=== PATIENT | male | born 1975 | race Caucasian/White ===

== ENCOUNTER 2023-08-30 08:33 | Outpatient (CLI) | payer OTHER, SELFPAY ==
--- NOTE | 2023-08-30 14:31 | ECG_ITS ---
Measurements Intervals [place] Rate: 86 P: 19 IA: 190 QRS: 57 QRSD: 126 T: 64 QT: 359 QTc: 431 Interpretive Statements SINUS RHYTHM POOR R-WAVE PROGRESSION BORDERLINE ECG ] NO PREVIOUS ECG AVAILABLE FOR COMPARISON Electronically Signed On 08-30-2023 18:06:16 GIZZARD PULLER by Enzo Cameron M.D.
[2023-08-30 14:54] LABS: Basophils Percent Auto 0.4 % (0.2-1.2); Eosinophils Absolute Auto 0.2 K/mm3 (0-0.3); Eosinophils Percent Auto 1.9 % (0-4.4); Hematocrit 46.4 % (42.0-52.0); Hemoglobin 15.3 g/dL (14.0-18.0); Immature Granulocyte Absolute 0.04 K/mm3 (0.00-0.031); Immature Granulocyte Percent A 0.4 % (0-0.5); Lymphocytes Absolute Auto 3.28 K/mm3 (0.9-3.2); Lymphocytes Percent Auto 36.4 % (18.3-44.2); Mean Corpuscular Hemoglobin 29.2 pg (26-34); Mean Corpuscular Volume 88.5 fl (80-100); Mean Platelet Volume 9.4 fl (7.4-10.4); Monocytes Absolute Auto 0.7 K/mm3 (0.1-0.6); Neutrophils Absolute Auto 4.8 K/mm3 (1.3-6.7); Neutrophils Percent Auto 52.9 % (45.5-73.1); Platelet Count Result 176 k/mm3 (150-375); Red Blood Count 5.24 M/mm3 (4.6-6.20); Red Cell Distribution Width 13.4 % (11.5-14.5)
[2023-08-30 15:08] LABS: Albumin Level 4.5 g/dL (3.5-5.1); Estimated Glomerular Filt Rate 46; Glucose 90 mg/dL (65-110)
[2023-08-30 15:40] LABS: Urine Cotinine NEGATIVE
[2023-08-30 18:18] LABS: Hemoglobin A1C 5.4 % (<5.7)
== END 2023-08-30 08:34 | disposition home or self-care (01) ==
PROVIDERS: Visit Provider Orthopaedic Surgery
DX: Z01.818 Encounter for other preprocedural examination (principal); M17.12 Unilateral primary osteoarthritis, left knee; R93.1 Abnormal findings on diagnostic imaging of heart and coronary circulation
CPT/HCPCS: 80307; 82040; 82565; 82947; 83036; 85025; 87081; 93005

== ENCOUNTER 2023-09-13 00:15 | Day surgery (SDC) | payer OTHER, MEDICAID, SELFPAY ==
[2023-08-30 13:50] VITALS: BMI 39.2
--- NOTE | 2023-08-30 14:06 | PC.NURSE ---
Report to the Outpatient Waiting Room, entrance under the green pavilion located off [facility], at time __0600 on date __09/13/23 . Planned Procedure Time: _0730 . Time changes happen often and if your time is changed the preop area will call you the afternoon before. - You and your visitor will be asked to self-screen and do not enter if you have any COVID symptoms. - A mask is optional within the hospital at this time. Patients may have clear liquids (water, carbonated beverages, clear teas, apple juice) until 3 hours prior to surgery( 4:30 AM) with a maximum of 20 ounces. - No food from midnight until time of surgery - Take the following medications with a SIP of water the morning of surgery: NONE DO NOT STOP ANY OF YOUR OTHER PRESCRIPTION MEDICATIONS PRIOR TO SURGERY ?EXCEPT THE FOLLOWING Medications to discontinue per physician NONE Date to take last dose Please no make-up, nail burundian, hairspray, perfume, deodorant, or body powder the day of surgery. No jewelry (including any body piercings) or valuables the day of surgery, leave them at home. Please take a shower or bath the night before, or the morning of, surgery with an antibacterial soap. Wear comfortable, loose fitting clothing. Children are encouraged to wear pajamas. - Jewelry must be removed prior to entering the operating room. Rings and piercings that are not removed may be cut off. - The hospital will not accept responsibility for valuables. - Please leave all valuables, including medications, at home the day of surgery. If you are going home after surgery, a licensed hazardous materials driver must drive you home. - NO public transportation without another adult if you receive anesthesia. - We recommend that an adult stay with you for 24 hours following discharge. - We also recommend that you do not drive, make important decision, drink alcoholic beverages, or take any drugs that were not prescribed by your health care provider for at least 24 hours after your discharge time. For Pediatric surgeries, we recommend two adults accompany the child home. Follow any additional instructions given to you from your surgeon. If you or anyone in your household have experienced Covid symptoms in the past week, please notify your surgeon or the nurse liaison at the phone number below for possible testing. VERBAL AND WRITTEN instructions given to PATIENT and asked if any additional questions and then verbalized understanding. Patient advised to call surgeon office or pre surgery nurse liaison [phone] if any additional questions.
[2023-08-30 14:22] VITALS: BP 138/87; PULSE 95; RESP 18; TEMP 36.8; O2SAT 98
--- NOTE | 2023-09-11 13:30 | PM.IMHP ---
H&P: HPI History of Present Illness Date/Time: 09/11/23 13:30 Chief Complaint: Patient presents knee pain left. He would like to have a knee replacement for his arthritis. Narrative: Patient has a long history of arthritis in his left knee. He has failed conservative treatment including medicine therapy cortisone exercise and time. He has also had arthroscopy previously of the left knee. He has to the point where he like to consider knee replacement surgery. Review of Systems Musculoskeletal: Musculoskeletal: Reports arthralgias and Reports joint swelling [facility] Surgical History Surgical History (Updated 08/13/23 @ 10:13 by Love Tyler [facility]) History of arthroscopic knee surgery left - Dr Fowler History of back surgery History of breast biopsy History of carpal tunnel release of both wrists History of ear surgery History of hernia repair History of shoulder surgery left- Dr Fowler Family History Family History (Updated 05/05/11 @ 12:27 by DOCTOR UNKNOWN) Other Diabetes mellitus Family history of cardiovascular disease Family history of kidney disease Social History Social History (Updated 08/13/23 @ 10:13 by Love Tyler [facility]) Smoking status: Never smoker Additional smoking assessment comments: DENIES ANY FORM OF TOBACCO USE Alcohol intake: current Drinks per week: 12 Alcohol use details: occasional Substance use type: does not use Lack of Transportation: No Lack of Food: Never True Current Housing: I Have Housing Concerned About Future Housing: No Difficulty Paying Gas/Electric Bills: No Difficulty Paying for Meds: No Currently Unemployed: No Education: High School Diploma/GED Difficulty w/ Childcare or Family Care: No Living arrangements: with family Occupation/Education: occupation 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 Motion from about 3 to 110?. Varus deformity. He walks with an antalgic gait. Has grinding crepitus and pain with any manipulation. Neurologically he can wiggle his toes and is grossly intact. Eyes: General: appearance normal, both eyes and all related structures Neck: Neck: supple Resp: Effort & Inspection: normal respiratory effort Cardio: Rate: regular rate Rhythm: regular rhythm Assessment and Plan Assessment and plan (1) Osteoarthritis of left knee: Code(s): M17.12 - Unilateral primary osteoarthritis, left knee Status: Acute Assessment and Plan: Patient has [id number] arthritis left knee. He has failed conservative treatment consisting of medicine therapy cortisone exercise and time. He is obese is however his BMI is under 40 at this point. He has even had knee arthroscopy this left knee and at this point nothing seems to help. He walks with an antalgic gait. Will proceed with knee replacement surgery per his request discussed risks benefits limitations and alternatives in detail. He understands the risks of surgery.
[2023-09-13] MEDS: ACETAMINOPHEN 500 MG TABLET 1000 MG PO (06:08)
[2023-09-13] MEDS: VANCOMYCIN 2,000 MG/NS 500 ML BAG 250 MG IVPB (06:25)
[2023-09-13] MEDS: LACTATED RINGERS 1,000 ML 30 ML IV CONT (06:35)
[2023-09-13 06:51] VITALS: BP 153/94; PULSE 85; RESP 16; TEMP 36.4; O2SAT 98
--- NOTE | 2023-09-13 06:52 | WPDANESEPPF ---
Anes - Initial Pre Proc Eval Procedure: Operation Date: 09/13/23 07:30 Proposed Procedures p Left Total Knee Arthroplasty - Poli Fowler MD Date/Time: 09/13/23 06:52 Surgeon: Poli Fowler MD Pre Op Diagnosis: OA left knee Patient Data Age: 48 Gender: M Height: 1.75 m Weight: 120.4 kg Last Vital Signs Temp 36.8 C 08/30/23 14:22 Pulse 95 08/30/23 14:22 Resp 18 08/30/23 14:22 BP 138/87 08/30/23 14:22 Pulse Ox 98 08/30/23 14:22 O2 Del Method Room Air 08/30/23 14:22 Allergies Allergy/AdvReac Type Severity Reaction Status Date / Time diclofenac AdvReac Unknown drowsy, Verified 09/13/23 06:05 nausea Home Medications Medication Instructions Recorded Confirmed Type rivaroxaban 10 mg tablet (Xarelto) 10 mg PO DAILY PE prophylaxis s/p 09/11/23 Rx joint replacement surgery #14 tabs Patient hx anesthesia problems: none Family hx anesthesia problems: none Results Review: All pre-operative results and documents have been reviewed as part of the pre-operative evaluation. FORMERLY [facility] Past Medical History Medical History (Updated 09/13/23 @ 06:52 by Piter Sigala MD) Obesity SOLITARIO (obstructive sleep apnea) Surgical History Surgical History History of arthroscopic knee surgery left - Dr Fowler History of back surgery History of breast biopsy History of carpal tunnel release of both wrists History of ear surgery History of hernia repair History of shoulder surgery left- Dr Fowler Family History Family History Other Diabetes mellitus Family history of cardiovascular disease Family history of kidney disease Social History Social History Smoking status: Never smoker Additional smoking assessment comments: DENIES ANY FORM OF TOBACCO USE Alcohol intake: current Drinks per week: 12 Alcohol use details: occasional Substance use type: does not use Lack of Transportation: No Lack of Food: Never True Current Housing: I Have Housing Concerned About Future Housing: No Difficulty Paying Gas/Electric Bills: No Difficulty Paying for Meds: No Currently Unemployed: No Education: High School Diploma/GED Difficulty w/ Childcare or Family Care: No Living arrangements: with family Occupation/Education: occupation 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 Informed Consent: The patient's anesthetic plan and its attendant risks and benefits were discussed with the patient/family/POA. Questions were solicited and answers provided to the satisfaction of the patient/family/POA.
--- NOTE | 2023-09-13 06:55 | WPDHPUPDATE1 ---
History and Physical Update Update Date/Time: 09/13/23 06:55 History and Physical has been reviewed, including an updated exam of the patient. There are NO changes in the patient's condition. Risks, benefits, and alternatives have been discussed and questions answered. Patient agrees to proceed with procedure. Patient has pimples on both legs. Will try to clean these up before surgery, and reschedule.
--- NOTE | 2023-09-13 07:04 | SUR.PREOP ---
Dr Fowler cancelled surgery due to pimples on his knee.
== END 2023-09-13 07:15 | disposition home or self-care (01) ==
PROVIDERS: Visit Provider Orthopaedic Surgery
PROC: (CPT 27447; principal; 2023-09-13 07:30)
DX: M17.12 Unilateral primary osteoarthritis, left knee (principal); G47.33 Obstructive sleep apnea (adult) (pediatric); E66.9 Obesity, unspecified; Z68.38 Body mass index [BMI] 38.0-38.9, adult; Z98.890 Other specified postprocedural states; Z79.01 Long term (current) use of anticoagulants; Z82.49 Family history of ischemic heart disease and other diseases of the circulatory system; Z53.09 Procedure and treatment not carried out because of other contraindication; L98.9 Disorder of the skin and subcutaneous tissue, unspecified
CPT/HCPCS: 36415; 86850; 86900; 86901; 99213; A9270; G0463; J0171; J1885; J2250; J2270; J2795; J3010; J3370; J7120

== ENCOUNTER 2023-09-27 00:34 | Day surgery (SDC) | payer OTHER, SELFPAY ==
[2023-09-20 09:41] VITALS: BMI 39.2
--- NOTE | 2023-09-20 09:48 | PC.NURSE ---
Report to the Outpatient Waiting Room, entrance under the green pavilion located off [facility], at time ___08____ on date _09/27/23 . Planned Procedure Time: ___1030 . Time changes happen often and if your time is changed the preop area will call you the afternoon before. - You and your visitor will be asked to self-screen and do not enter if you have any COVID symptoms. - A mask is optional within the hospital at this time. Patients may have clear liquids (water, carbonated beverages, clear teas, apple juice) until 3 hours prior to surgery (0730 AM) with a maximum of 20 ounces. - No food from midnight until time of surgery - Infants may have breast milk until 4 hours before surgery, formula 6 hours prior to surgery. - Children will be allowed to drink immediately following surgery. If applicable, please bring a bottle or sippy cup to assist with drinking. Juice, water, soda, and popsicles are readily available. For infants on formula, please bring formula the day of surgery. Pacifiers are allowed. Take the following medications with a SIP of water the morning of surgery: ____NONE DO NOT STOP ANY OF YOUR OTHER PRESCRIPTION MEDICATIONS PRIOR TO SURGERY ?EXCEPT THE FOLLOWING Medications to discontinue per physician NONE Date to take last dose Please no make-up, nail syriac, hairspray, perfume, deodorant, or body powder the day of surgery. No jewelry (including any body piercings) or valuables the day of surgery, leave them at home. Please take a shower or bath the night before, or the morning of, surgery with an antibacterial soap. Wear comfortable, loose fitting clothing. Children are encouraged to wear pajamas. - Jewelry must be removed prior to entering the operating room. Rings and piercings that are not removed may be cut off. - The hospital will not accept responsibility for valuables. - Please leave all valuables, including medications, at home the day of surgery. If you are going home after surgery, a licensed cdl a driver must drive you home. - NO public transportation without another adult if you receive anesthesia. - We recommend that an adult stay with you for 24 hours following discharge. - We also recommend that you do not drive, make important decision, drink alcoholic beverages, or take any drugs that were not prescribed by your health care provider for at least 24 hours after your discharge time. For Pediatric surgeries, we recommend two adults accompany the child home. Follow any additional instructions given to you from your surgeon. If you or anyone in your household have experienced Covid symptoms in the past week, please notify your surgeon or the nurse liaison at the phone number below for possible testing. Telephone instructions given to ____PT and asked if any additional questions and then verbalized understanding. Patient advised to call surgeon office or pre surgery nurse liaison [phone] if any additional questions.
--- NOTE | 2023-09-26 12:42 | PM.IMHP ---
H&P: HPI History of Present Illness Date/Time: 09/26/23 12:42 Chief Complaint: Osteoarthritis left knee. Narrative: Patient has a long history of pain in the left knee. He has failed conservative treatment like to consider knee replacement surgery at this point. Review of Systems Musculoskeletal: Musculoskeletal: Reports arthralgias and Reports joint swelling PMF Past Medical History Medical History (Updated 09/13/23 @ 06:52 by Piter Sigala MD) Obesity SOLITARIO (obstructive sleep apnea) Surgical History Surgical History History of arthroscopic knee surgery left - Dr Fowler History of back surgery History of breast biopsy History of carpal tunnel release of both wrists History of ear surgery History of hernia repair History of shoulder surgery left- Dr Fowler Family History Family History Other Diabetes mellitus Family history of cardiovascular disease Family history of kidney disease Social History Social History Smoking status: Never smoker Second hand tobacco smoke exposure: No Additional smoking assessment comments: PT DENIES ALL FORMS TOBACCO USE Alcohol intake: current Drinks per week: 12 Alcohol use details: occasional Substance use: never Substance use type: does not use Lack of Transportation: No Lack of Food: Never True Current Housing: I Have Housing Concerned About Future Housing: No Difficulty Paying Gas/Electric Bills: No Difficulty Paying for Meds: No Currently Unemployed: No Education: High School Diploma/GED Difficulty w/ Childcare or Family Care: No Living arrangements: with family Occupation/Education: occupation 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 He has varus deformity. He walks with an antalgic gait. Neurologically he is grossly intact. Eyes: General: appearance normal, both eyes and all related structures Neck: Neck: supple Resp: Effort & Inspection: normal respiratory effort Cardio: Rate: regular rate Rhythm: regular rhythm Assessment and Plan Assessment and plan (1) Osteoarthritis of left knee: Code(s): M17.12 - Unilateral primary osteoarthritis, left knee Status: Acute Assessment and Plan: Patient has osteoarthritis of his left knee. He has failed conservative treatment including medicine therapy cortisone exercise time. He would like to consider knee replacement surgery. I have discussed this with him risks benefits limitations and alternatives in detail. Will proceed per his request. I canceled 2 weeks ago because of folliculitis. Will reassess his skin at the time of surgery to make sure it is okay to proceed. I have discussed these things in detail with him. Of note is the fact he is young heavy active in [place] all of which leads to early loosening and he is aware of this.
--- NOTE | 2023-09-26 13:16 | WPDANESEPPF ---
Anes - Initial Pre Proc Eval Procedure: Operation Date: 09/27/23 10:30 Proposed Procedures p Left Total Knee Arthroplasty - Poli Fowler MD Date/Time: 09/26/23 13:16 Surgeon: Poli Fowler MD Pre Op Diagnosis: OA Left Knee Patient Data Age: 48 Gender: M Height: 1.75 m Weight: 120.4 kg Allergies Allergy/AdvReac Type Severity Reaction Status Date / Time diclofenac AdvReac Unknown drowsy, Verified 09/20/23 09:40 nausea Home Medications Medication Instructions Recorded Confirmed Type doxycycline hyclate 100 mg capsule 100 mg PO Q12H 10 days #20 caps 09/13/23 09/20/23 Rx Patient hx anesthesia problems: none Family hx anesthesia problems: none Results Review: All pre-operative results and documents have been reviewed as part of the pre-operative evaluation. 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 Obesity SOLITARIO (obstructive sleep apnea) non compliant with CPAP Surgical History Surgical History History of arthroscopic knee surgery left - Dr Fowler History of back surgery History of breast biopsy History of carpal tunnel release of both wrists History of ear surgery History of hernia repair History of shoulder surgery left- Dr Fowler Family History Family History Other Diabetes mellitus Family history of cardiovascular disease Family history of kidney disease Social History Social History Smoking status: Never smoker Second hand tobacco smoke exposure: No Additional smoking assessment comments: PT DENIES ALL FORMS TOBACCO USE Alcohol intake: current Drinks per week: 12 Alcohol use details: occasional Substance use: never Substance use type: does not use Lack of Transportation: No Lack of Food: Never True Current Housing: I Have Housing Concerned About Future Housing: No Difficulty Paying Gas/Electric Bills: No Difficulty Paying for Meds: No Currently Unemployed: No Education: High School Diploma/GED Difficulty w/ Childcare or Family Care: No Living arrangements: with family Occupation/Education: occupation 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 Informed Consent: The patient's anesthetic plan and its attendant risks and benefits were discussed with the patient/family/POA. Questions were solicited and answers provided to the satisfaction of the patient/family/POA.
[2023-09-27] VITALS (12 sets, daily range): BP systolic 123–158; BP diastolic 68–111; PULSE 93–108; RESP 12–18; TEMP 36.2–37.2; O2SAT 91–100
--- NOTE | ~2023-09-27 | XR_ITS ---
EXAMINATION: [id number] DATE: 09/27/2023 11:13 INDICATION: Left knee arthroplasty. Postop. TECHNIQUE: 2 views of left knee were obtained. COMPARISON: None. FINDINGS: There is a total left knee arthroplasty with patellar resurfacing in near-anatomic alignmen t. No fracture. There is gas in the knee joint and soft tissues, consistent with recent surgery. Ante rior skin selena are noted. IMPRESSION: 1. Total left knee arthroplasty in near-anatomic alignment. Reviewed, dictated and finalized at location [facility]
--- NOTE | 2023-09-27 06:56 | WPDHPUPDATE1 ---
History and Physical Update Update Date/Time: 09/27/23 06:56 History and Physical has been reviewed, including an updated exam of the patient. There are NO changes in the patient's condition. Risks, benefits, and alternatives have been discussed and questions answered. Patient agrees to proceed with procedure.
[2023-09-27] MEDS: ACETAMINOPHEN 500 MG TABLET 1000 MG PO (08:15)
[2023-09-27] MEDS: VANCOMYCIN 1,750 MG/NS 500 ML BAG 250 MG IVPB (08:20)
[2023-09-27] MEDS: TRANEXAMIC ACID 1,000MG/ISO100 1,000 MG/100 ML BAG 200 MG IVPB (08:20)
[2023-09-27] MEDS: LACTATED RINGERS 1,000 ML 30 ML IV CONT (08:20)
--- NOTE | 2023-09-27 08:41 | WPDANESPNB ---
Anes - Peripheral Nerve Block Date/Time: 09/27/23 08:41 I have discussed with the patient/family/POA the placement of a peripheral nerve block for post-operative pain management, including associated risks, benefits, complications, and side effects. Alternative methods of post-operative analgesia were detailed. Questions were solicited and answers provided to the satisfaction of the patient/family/POA. Time-Out: A pre-procedural Time-Out was completed immediately before starting the procedure and confirmed: Patient Identification, Site, Procedure, Patient Position and the Availability of Requisite Equipment. Clinical Indications: Acute post-operative pain management requested by the operative surgeon. Nerve Block Insertion Note Anes-nerve block: adductor canal left Patient position: supine Skin prep: chlorhexidine Needle: 22 gauge, stimulating, insulated echogenic needle. Needle length: 80 mm Technique: ultrasound Injectate: bupivacaine 0.5% with epi 5 mcg/ml (30cc - no epi) Observations: tolerated well Complications: none Procedure start time:: 829 Procedure end time:: 834
[2023-09-27] MEDS: GENTAMICIN BONE CEMENT REFOBACIN 1 EACH TOPICAL (09:58)
--- NOTE | 2023-09-27 10:33 | P.OP_ITS ---
Procedure Note - Detailed Date of Procedure 09/27/23 Pre-op Diagnosis Osteoarthritis LEFT Knee Post-op Diagnosis Same Procedure Performed LEFT total knee arthroplasty Surgeon Poli Fowler MD Import/Export Agent Tiffany Worthington Anesthesia General Indications Arthritis and Pain Description of Procedure The patient was brought to operating room #7. A general anesthetic was administered. Placed on the operating table and sterilely prepped and draped in usual manner. A longitudinal incision was made. Tourniquet inflated to 300 mmHg for a total of 60 minutes. Dissection was carried down to the fascia. Medial parapatellar incision was made and the patella subluxated laterally. Patella cut from 26 to 16 mm and sized for a 34 mm button. The tibia was cut perpendicular to the long axis and femur cut in 5 degrees of valgus. A 70 femur trialed. 75 tibia was felt to fit the best. The soft tissue balanced, hemostasis obtained. All [address], 75 tibia, 70 femur, 34 mm patella, and 10 mm poly. Motion was 0-125 degrees with good stability in both flexion and extension. The wound was closed with #2 Vicryl, 2-0 Vicryl and selena. Implants [employer] Estimated Blood Loss 200 Drains No Packing No Pathology None sent Complications No immediate complications Condition Stable Disposition PACU [facility] Billing Surgery - Charge Forward: Surgery Billing (Total Knee [id number])
[2023-09-27] MEDS: fentaNYL CITRATE INJ (*CRX) 100 MCG/2 ML VIAL 25 MCG IV PUSH ×8 (10:58→11:27)
[2023-09-27] MEDS: HYDROmorphone HCL INJ (*CRX) 1 MG/ML SYR 0.5 MG IV PUSH ×2 (11:37→11:45)
--- NOTE | 2023-09-27 11:55 | PC.NURSE ---
This patient, Manny Fowler, was admitted to 3 [facility] Surg Room 326-01. Patient/family oriented to hospital policies and general routines including ID bracelet, bed and alarms, visiting hours, pain management, procedures, bathroom and other care routines, personal items, smoking policy, room service/diet, and visiting hours. Information on how to activate the Rapid Response Team has been discussed. Patient/Family are encouraged to report perceived risks to care and to ask questions if they do not understand what they are told or what they should do.
[2023-09-27] MEDS: HYDROcodone/acetaminophen (*CRX) 7.5-325 MG TABLET 1 TAB PO ×2 (12:45→20:13)
[2023-09-27] MEDS: CYCLOBENZAPRINE HCL 10 MG TABLET PO (12:45)
--- NOTE | 2023-09-27 15:12 | PM.IMCN ---
Assessment and Plan Assessment and plan (1) Osteoarthritis of left knee: Qualifiers: Osteoarthritis type: primary Qualified Code(s): M17.12 - Unilateral primary osteoarthritis, left knee Code(s): M17.12 - Unilateral primary osteoarthritis, left knee Status: Acute Assessment and Plan: primary management by Ortho team. Total knee replacement (L) done on 09/27/23 by MD Malcolm. Anticipated d/c tomorrow, 09/28. use IS neurovasc checks - see order for intervals SCDs resume diet pain management zofran PRN for nausea monitor labs in AM - CBC and BMP bowel regimen: docusate/senna, polyethylene glycol (2) Elevated serum creatinine: Code(s): R79.89 - Other specified abnormal findings of blood chemistry Status: Acute Assessment and Plan: no previous hx of CKD, mild illness/reduced PO intake 1 week prior to lab draw. repeat CBC and CMP today. LR 100 mL/hr x1L adding A1C and lipid panel further plan/recs post-repeat lab work - Metal Sash Setter 1.2, ALT 53, triglycerides 308, cholesterol 232. Adding hepatitis C and B evaluation. DDx: CKD, hepatitis, kidney injury secondary to viral illness (3) Elevated BP without diagnosis of hypertension: Code(s): R03.0 - Elevated blood-pressure reading, without diagnosis of hypertension Status: Acute Assessment and Plan: BP ranging from 150/100 to 140/83 since arrival. No previous diagnosis of HTN. Continue to monitor. Currently being evaluated for elevated creatinine. Recommend establishing care with a PCP and outpatient follow-up. Plan Home Meds/Chronic Conditions - none Diet: regular GI Prophylaxis: famotidine DVT Prophylaxis: SCDs, starting Xarelto this evening (09/27) Lines: pIV Code Status: Full Code HPI Date of Consult Consult date: 09/27/23 Requesting Physician: Poli Fowler MD Primary Care Provider: CLINICAL SYSTEMS ANALYST PHYSICIAN Consult Narrative Reason for consult: Medical Managment Narrative: Manny Fowler is a 48 year old male presented here with history of L knee arthritis with no known PMH. Patient presented here for surgical management of his L chronic knee pain. Patient trialed/failed cortisone injections, exercises, and time. Has previously had a L arthroplasty of the knee. Elected to proceed with a total left knee replacement. Done on 09/27/23 by Malcolm KAY with no immediate post-op complications. Was originally scheduled for 09/13 but patient had small area of folliculitis to his anterior knee and surgery was postponed and placed on Doxycycline 100 mg Q12H x10d and area resolved without incident. Of note, pre-op blood work obtained on 08/30/23 showed a creatinine of 1.6. Patient denies any previous hx of CKD. Does have FH of CKD (mother). Denies any previous diagnosis of HTN or DM. Patient did report URI/poor appetite/poor PO intake 1 week prior to blood work. Currently denying any post-operative N/V. Endorsing very mild knee discomfort. No other concerns. 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
[2023-09-27] MEDS: LACTATED RINGERS 1,000 ML 100 ML IV CONT (15:41)
[2023-09-27] MEDS: ceFAZolin 2 GM/D5W 50 ML 2 GM/50 ML BAG IVPB (15:42)
[2023-09-27 16:13] LABS: Hematocrit 43.7 % (42.0-52.0); Hemoglobin 14.3 g/dL (14.0-18.0); Mean Corpuscular HGB Conc 32.7 g/dl (32-36); Mean Corpuscular Volume 88.6 fl (80-100); Mean Platelet Volume 9.5 fl (7.4-10.4); Platelet Count Result 159 k/mm3 (150-375); Red Blood Count 4.93 M/mm3 (4.6-6.20); Red Cell Distribution Width 13.1 % (11.5-14.5); White Blood Count 11.4 K/mm3 (4.5-10.0)
[2023-09-27 16:26] LABS: Alanine Aminotransferase 53 U/L (6-50); Albumin Level 4.5 g/dL (3.5-5.1); Alkaline Phosphatase 80 U/L (38-126); Anion Gap 10 mmol/L (8-16); Aspartate Amino Transferase 39 U/L (17-59); Bilirubin,Total 0.5 mg/dL (0.2-1.3); Blood Urea Nitrogen 15 mg/dL (9-20); Calcium 8.4 mg/dL (8.4-10.2); Carbon Dioxide 24 mmol/L (22-30); Chloride 100 mmol/L (98-107); Cholesterol 232 mg/dL (0-200); Estimated CRCL calculation 84 ml/min; Estimated Glomerular Filt Rate > 60; Glucose 146 mg/dL (65-110); HDL Direct 43 mg/dL; Sodium 134 mmol/L (137-145); Triglycerides 308 mg/dL (<150)
[2023-09-27 16:37] LABS: LDL Cholesterol Direct 43 mg/dL
[2023-09-27] MEDS: CELECOXIB 200 MG CAPSULE PO (17:27)
[2023-09-27] MEDS: RIVAROXABAN 10 MG TABLET PO (17:27)
[2023-09-27] MEDS: SENNA/DOCUSATE SODIUM TABLET 2 TAB PO (17:27)
[2023-09-27 17:38] LABS: Hemoglobin A1C 5.6 % (<5.7)
[2023-09-27] MEDS: FAMOTIDINE 20 MG TABLET PO (20:13)
[2023-09-28] VITALS: BP 127/90; PULSE 102; RESP 16; TEMP 36.2; O2SAT 95
[2023-09-28] MEDS: ceFAZolin 2 GM/D5W 50 ML 2 GM/50 ML BAG IVPB ×2 (00:44→09:08)
[2023-09-28] MEDS: HYDROcodone/acetaminophen (*CRX) 7.5-325 MG TABLET 1 TAB PO ×2 (03:28→11:35)
[2023-09-28 04:00] VITALS: BP 122/82; PULSE 102; RESP 20; TEMP 36.4; O2SAT 94
[2023-09-28 06:44] LABS: Basophils Percent Auto 0.2 % (0.2-1.2); Eosinophils Absolute Auto 0.1 K/mm3 (0-0.3); Eosinophils Percent Auto 0.6 % (0-4.4); Hematocrit 39.2 % (42.0-52.0); Hemoglobin 12.6 g/dL (14.0-18.0); Immature Granulocyte Absolute 0.03 K/mm3 (0.00-0.031); Immature Granulocyte Percent A 0.3 % (0-0.5); Immature Platelet Fraction Pct 2.7 % (0.9-11.2); Lymphocytes Absolute Auto 2.16 K/mm3 (0.9-3.2); Mean Corpuscular HGB Conc 32.1 g/dl (32-36); Mean Corpuscular Hemoglobin 28.3 pg (26-34); Mean Corpuscular Volume 88.1 fl (80-100); Mean Platelet Volume 9.6 fl (7.4-10.4); Monocytes Absolute Auto 1.1 K/mm3 (0.1-0.6); Monocytes Percent Auto 10.8 % (2.6-8.5); Neutrophils Absolute Auto 6.5 K/mm3 (1.3-6.7); Neutrophils Percent Auto 66.1 % (45.5-73.1); Platelet Count Result 142 k/mm3 (150-375); Red Blood Count 4.45 M/mm3 (4.6-6.20); Red Cell Distribution Width 13.3 % (11.5-14.5); White Blood Count 9.8 K/mm3 (4.5-10.0)
[2023-09-28 06:58] LABS: Anion Gap 6 mmol/L (8-16); Blood Urea Nitrogen 16 mg/dL (9-20); Calcium 8.2 mg/dL (8.4-10.2); Carbon Dioxide 28 mmol/L (22-30); Chloride 101 mmol/L (98-107); Estimated CRCL calculation 91 ml/min; Estimated Glomerular Filt Rate > 60; Glucose 114 mg/dL (65-110); Sodium 135 mmol/L (137-145)
--- NOTE | 2023-09-28 07:55 | P.PNAN_ITS ---
Anes - Prog Note Post-Op Date/Time: 09/28/23 07:55 Cardiovascular status: normal Respiratory status: normal Airway patency: baseline Mental status: baseline Post-Op hydration status: normal Vital Signs: Last Vital Signs Temp 36.4 C 09/28/23 04:00 Pulse 102 H 09/28/23 04:00 Resp 20 09/28/23 04:00 BP 122/82 09/28/23 04:00 Pulse Ox 94 09/28/23 04:00 O2 Del Method Room Air 09/27/23 20:00 O2 Flow Rate 2 09/27/23 11:49 Pain Score (VAS): 11/17 I/O: Intake & Output 09/27/23 09/27/23 09/28/23 15:59 23:59 07:59 Intake Total 200 780 450 Output Total 340 420 Balance 200 440 30 Laboratory Tests 09/28/23 06:08 09/28/23 06:08 09/27/23 09/27/23 09/28/23 08:16 15:54 06:08 WBC 11.4 H 9.8 RBC 4.93 4.45 L Hgb 14.3 12.6 L Hct 43.7 39.2 L MCV 88.6 88.1 MCH 29.0 28.3 MCHC 32.7 32.1 RDW 13.1 13.3 Plt Count 159 142 L MPV 9.5 9.6 Immature Gran % (Auto) 0.3 Neut % (Auto) 66.1 Lymph % (Auto) 22.0 Mcdowell % (Auto) 10.8 H Eos % (Auto) 0.6 Baso % (Auto) 0.2 Lymph # (Auto) 2.16 Mcdowell # (Auto) 1.1 H Eos # (Auto) 0.1 Baso # (Auto) 0.0 Abs Immat Gran (auto) 0.03 Absolute Neuts (auto) 6.5 Absolute Nucleated RBC 0.0 Nucleated RBC % 0.0 % Immature Plt Fraction 2.7 Sodium 134 L 135 L Potassium 5.0 4.0 Chloride 100 101 Carbon Dioxide 24 28 Anion Gap 10 6 L BUN 15 16 Creatinine 1.20 1.10 Estim Creat Clear Calc 84 91 Estimated GFR > 60 > 60 Glucose 146 H 114 H Hemoglobin A1c 5.6 Calcium 8.4 8.2 L Total Bilirubin 0.5 AST 39 ALT 53 H Alkaline Phosphatase 80 Total Protein 8.0 Albumin 4.5 Triglycerides 308 H Cholesterol 232 H LDL Cholesterol Direct 43 HDL Direct 43 Hep B Core Total Ab Pending Blood Type A Negative Antibody Screen Negative Post-procedural complaints: other (mild sore throat) Patient Feedback: Patient satisfied with anesthetic care.
--- NOTE | 2023-09-28 08:07 | PM.PNORT ---
Progress Note: A&P Assessment and Plan (1) Osteoarthritis of left knee: Qualifiers: Osteoarthritis type: primary Qualified Code(s): M17.12 - Unilateral primary osteoarthritis, left knee Code(s): M17.12 - Unilateral primary osteoarthritis, left knee Status: Acute Assessment and Plan: S/P TKA LEFT. Doing well. Home today. F/U 2 weeks (2) History of knee replacement procedure of left knee: Code(s): Z96.652 - Presence of left artificial knee joint Status: Acute Subjective Subjective Date/Time Seen: 09/28/23 08:07 Post Op day: 1 Principal diagnosis: Left Total Knee for osteoarthritis Interval history: S/P TKA Left. Doing well. Dressing intact. Neurologically intact. Ambulating Review of Systems Musculoskeletal: Musculoskeletal: Reports arthralgias and Reports joint swelling Exam Narrative: NVI Dressing Intact Ambulation Objective Data Vital Signs Vital Signs: Vital Signs - 24 hr 09/27/23 10:56 09/27/23 11:10 09/27/23 11:25 Temperature 99.0 F Pulse Rate 106 H 104 H 99 Respiratory Rate 16 14 14 Blood Pressure 143/111 H 150/96 H 143/98 H Pulse Oximetry 100 94 97 Oxygen Delivery Simple Face Mask Room Air Nasal Cannula Oxygen Flow Rate 8 2 09/27/23 11:40 09/27/23 11:49 09/27/23 12:00 Temperature 97.1 F L Pulse Rate 96 99 93 Respiratory Rate 12 14 16 Blood Pressure 156/100 H 158/100 H 146/87 H Pulse Oximetry 92 97 91 Oxygen Delivery Nasal Cannula Nasal Cannula Oxygen Flow Rate 2 2 09/27/23 13:02 09/27/23 12:15 09/27/23 12:45 Temperature 97.1 F L 97.5 F L Pulse Rate 93 93 Respiratory Rate 16 16 Blood Pressure 152/68 H 141/89 H Pulse Oximetry 93 93 Oxygen Delivery Room Air Oxygen Flow Rate 09/27/23 13:45 09/27/23 17:34 09/27/23 20:00 Temperature 97.8 F 97.8 F Pulse Rate 94 108 H Respiratory Rate 16 16 Blood Pressure 140/83 123/72 Pulse Oximetry 94 94 Oxygen Delivery Room Air Oxygen Flow Rate 09/27/23 20:00 09/28/23 00:00 09/28/23 04:00 Temperature 97.4 F L 97.2 F L 97.6 F Pulse Rate 105 H 102 H 102 H Respiratory Rate 14 16 20 Blood Pressure 124/82 127/90 122/82 Pulse Oximetry 92 95 94 Oxygen Delivery Oxygen Flow Rate Intake/Output Intake/Output: Intake & Output 09/25/23 09/26/23 09/27/23 09/28/23 23:59 23:59 23:59 23:59 Intake Total 980 450 Output Total 340 420 Balance 640 30 Meds/Results Medications: Active Medications Generic Name Dose Route Start Last Admin Trade Name Freq PRN Reason Stop Dose Admin Acetaminophen 1,000 mg 09/27/23 11:49 Acetaminophen 500 Mg Tablet PO Q6H PRN Pain Rated 1-3 Hydrocodone Bitart/Acetaminophen 1 tab 09/27/23 11:49 09/28/23 03:28 Hydrocodone/Acetaminophen (*Crx) 7.5-325 Mg Tablet PO 1 tab Q6H PRN Administration Pain Rated 7-10 Hydrocodone Bitart/Acetaminophen 1 tab 09/27/23 11:49 Hydrocodone/Acetaminophen (*Crx) 5-325 Mg Tablet PO Q4H PRN Pain Rated 4-6 Celecoxib 200 mg 09/27/23 17:00 09/27/23 17:27 Celecoxib 200 Mg Capsule PO 200 mg BIDWM BELG[place] Administration Cyclobenzaprine HCl 10 mg 09/27/23 11:49 09/27/23 12:45 Cyclobenzaprine Hcl 10 Mg Tablet PO 10 mg Q8H PRN Administration Spasms Diphenhydramine HCl 25 mg 09/27/23 11:49 Diphenhydramine Hcl Inj 50 Mg/Ml Vial IV PUSH Q6H PRN Itching Famotidine 20 mg 09/27/23 21:00 09/27/23 20:13 Famotidine 20 Mg Tablet PO 20 mg Q12HR BELG[place] Administration Cefazolin Sodium 2 gm in 50 mls @ 100 mls/hr 09/27/23 16:00 09/28/23 00:44 Ancef 2 Gm/D5w 50 Ml IVPB 09/28/23 08:29 100 mls/hr Q8H BELG[place] Administration Naloxone HCl 0.1 mg 09/27/23 11:49 Naloxone Hcl 0.4 Mg/Ml Vial IV PUSH Q2M PRN Opiate Reversal Polyethylene Glycol 17 gm 09/28/23 09:00 Polyethylene Glycol 3350 17 Gm Powd.Pack PO QAM BELGICA Rivaroxaban 10 mg 09/27/23 17:00 09/27/23 17:27 Rivaroxaban 10
--- NOTE | 2023-09-28 08:11 | PM.DS ---
DS: Admitting Diagnosis Discharge Date 09/28/2023 Admitting Diagnosis LEFT Knee Osteoarthritis DS: Discharge Diagnosis Discharge Diagnosis (1) History of knee replacement procedure of left knee: Code(s): Z96.652 - Presence of left artificial knee joint Status: Acute Assessment and Plan: S/P LEFT TKA Progessing well (2) Osteoarthritis of left knee: Qualifiers: Osteoarthritis type: primary Qualified Code(s): M17.12 - Unilateral primary osteoarthritis, left knee Code(s): M17.12 - Unilateral primary osteoarthritis, left knee Status: Acute DS: Summary Hospital Course Hospital Course: Patient underwent LEFT TKA for Left knee osteoarthritis. Doing well postoperatively. Anticipate home today after therapy. Status at Discharge Functional status at discharge: uses cane/walker Time Spent with Patient Time attestation: Total time spent providing and/or coordinating discharge services: Exam Narrative: Dressing Intact NVI Ambulating Eyes: General: appearance normal, both eyes and all related structures Resp: Effort & Inspection: normal respiratory effort Cardio: Rate: regular rate Rhythm: regular rhythm DS: Data Data Completed and Pending Labs on day of discharge: Labs from last 24 hours 09/28/23 09/27/23 09/27/23 06:08 15:54 08:16 WBC 9.8 11.4 H RBC 4.45 L 4.93 Hgb 12.6 L 14.3 Hct 39.2 L 43.7 MCV 88.1 88.6 MCH 28.3 29.0 MCHC 32.1 32.7 RDW 13.3 13.1 Plt Count 142 L 159 MPV 9.6 9.5 Immature Gran % (Auto) 0.3 Neut % (Auto) 66.1 Lymph % (Auto) 22.0 Pope % (Auto) 10.8 H Eos % (Auto) 0.6 Baso % (Auto) 0.2 Lymph # (Auto) 2.16 Pope # (Auto) 1.1 H Eos # (Auto) 0.1 Baso # (Auto) 0.0 Abs Immat Gran (auto) 0.03 Absolute Neuts (auto) 6.5 Absolute Nucleated RBC 0.0 Nucleated RBC % 0.0 % Immature Plt Fraction 2.7 Sodium 135 L 134 L Potassium 4.0 5.0 Chloride 101 100 Carbon Dioxide 28 24 Anion Gap 6 L 10 BUN 16 15 Creatinine 1.10 1.20 Estim Creat Clear Calc 91 84 Estimated GFR > 60 > 60 Glucose 114 H 146 H Hemoglobin A1c 5.6 Calcium 8.2 L 8.4 Total Bilirubin 0.5 AST 39 ALT 53 H Alkaline Phosphatase 80 Total Protein 8.0 Albumin 4.5 Triglycerides 308 H Cholesterol 232 H LDL Cholesterol Direct 43 HDL Direct 43 Hep B Core Total Ab Pending Blood Type A Negative Antibody Screen Negative Discharge Plan Discharge Patient Disposition: Home, Self-Care Discharge Instructions: Dr. Poli Fowler M.D [address] [place] [address] POST-OPERATIVE DISCHARGE INSTRUCTIONS TOTAL KNEE ARTHROPLASTY 1. When resting, do not rest in the chair.When resting, lie on your back, with back flat on the couch or bed, with leg elevated above heart to minimize swelling. You may put a pillow under your head. . Significant swelling could indicate a blood clot and if this occurs call the office (or go to the ER) to have a venous ultrasound. Therefore, do not rest in a chair. 2. At least five times a day spend several minutes stretching your knee into flexion while sitting in the chair and also stretching your knee out straight The abilities to bend your knee fulling and straighten your knee fully are two most important knee functions to focus on during your recovery. 3. It is ok to sit in chair to eat, use the toilet and receive a guest and to do your stretching exercises, but, sitting in a chair will cause your leg to swell. Therefore, avoid additional time sitting in the chair. and don't rest in the chair. 4. Wound Care: Nursing will give you an additional Mepilex dressing at the time of discharge. Patient to remove the dressing and apply a new Mepilex dressing at home 7 days after surgery and leave the dressing on until seen in office. 5. May shower with a Mepilex dressing in place
[2023-09-28 08:14] LABS: Hepatitis B Surface Antigen Negative (Negative)
[2023-09-28 08:29] LABS: Hepatitis B Surface Anti Res Negative; Hepatitis C Virus Antibody Negative (Negative)
[2023-09-28] MEDS: HYDROcodone/acetaminophen (*CRX) 5-325 MG TABLET 1 TAB PO (09:06)
[2023-09-28] MEDS: SENNA/DOCUSATE SODIUM TABLET 2 TAB PO (09:13)
[2023-09-28] MEDS: CELECOXIB 200 MG CAPSULE PO (09:14)
[2023-09-28] MEDS: FAMOTIDINE 20 MG TABLET PO (09:14)
--- NOTE | 2023-09-28 11:59 | PM.IMPN ---
Progress Note: A&P Assessment and Plan (1) Osteoarthritis of left knee: Qualifiers: Osteoarthritis type: primary Qualified Code(s): M17.12 - Unilateral primary osteoarthritis, left knee Code(s): M17.12 - Unilateral primary osteoarthritis, left knee Status: Acute Assessment and Plan: primary management by Ortho team. Total knee replacement (L) done on 09/27/23 by MD Malcolm. Anticipated d/c tomorrow, 09/28. resume diet pain management Zofran PRN for nausea monitor labs in AM - CBC and BMP bowel regimen: docusate/senna, polyethylene glycol (2) Elevated serum creatinine: Code(s): R79.89 - Other specified abnormal findings of blood chemistry Status: Acute Assessment and Plan: no previous hx of CKD, mild illness/reduced PO intake 1 week prior to lab draw. repeat CBC and CMP today. LR 100 mL/hr x1L further plan/recs post-repeat lab work - Central Processing Tech 1.2, ALT 53, triglycerides 308, cholesterol 232. Adding hepatitis C and B evaluation. DDx: CKD, hepatitis, kidney injury secondary to viral illness (3) Elevated BP without diagnosis of hypertension: Code(s): R03.0 - Elevated blood-pressure reading, without diagnosis of hypertension Status: Acute Assessment and Plan: BP ranging from 150/100 to 140/83 since arrival. No previous diagnosis of HTN. Continue to monitor. Currently being evaluated for elevated creatinine. Recommend establishing care with a PCP and outpatient follow-up. Subjective Date/time seen: 09/28/23 11:59 Interval history: patient doing well today. patient is bandaged appropriately. May discharge per hospitalist team. Exam Narrative: GENERAL: Comfortable, no acute distress HENMT: moist mucous membranes EYES: EOM intact b/l NECK: no lymphadenopathy RESPIRATORY: clear to auscultation CARDIO: RRR GI: soft, nontender, bowel sounds present SKIN: no rashes EXTREMITIES: Left knee Tegaderm intact and dry Objective Data Vital Signs Vital Signs: Vital Signs - 24 hr 09/27/23 12:00 09/27/23 13:02 09/27/23 12:15 Temperature 97.1 F L 97.1 F L Pulse Rate 93 93 Respiratory Rate 16 16 Blood Pressure 146/87 H 152/68 H Pulse Oximetry 91 93 Oxygen Delivery Room Air 09/27/23 12:45 09/27/23 13:45 09/27/23 17:34 Temperature 97.5 F L 97.8 F 97.8 F Pulse Rate 93 94 108 H Respiratory Rate 16 16 16 Blood Pressure 141/89 H 140/83 123/72 Pulse Oximetry 93 94 94 Oxygen Delivery 09/27/23 20:00 09/27/23 20:00 09/28/23 00:00 Temperature 97.4 F L 97.2 F L Pulse Rate 105 H 102 H Respiratory Rate 14 16 Blood Pressure 124/82 127/90 Pulse Oximetry 92 95 Oxygen Delivery Room Air 09/28/23 04:00 Temperature 97.6 F Pulse Rate 102 H Respiratory Rate 20 Blood Pressure 122/82 Pulse Oximetry 94 Oxygen Delivery Intake/Output Intake/Output: Intake & Output 09/25/23 09/26/23 09/27/23 09/28/23 23:59 23:59 23:59 23:59 Intake Total 980 1030 Output Total 340 420 Balance 640 610 Meds/Results Medications: Active Medications Generic Name Dose Route Start Last Admin Trade Name Freq PRN Reason Stop Dose Admin Acetaminophen 1,000 mg 09/27/23 11:49 Acetaminophen 500 Mg Tablet PO Q6H PRN Pain Rated 1-3 Hydrocodone Bitart/Acetaminophen 1 tab 09/27/23 11:49 09/28/23 11:35 Hydrocodone/Acetaminophen (*Crx) 7.5-325 Mg Tablet PO 1 tab Q6H PRN Administration Pain Rated 7-10 Hydrocodone Bitart/Acetaminophen 1 tab 09/27/23 11:49 09/28/23 09:06 Hydrocodone/Acetaminophen (*Crx) 5-325 Mg Tablet PO 1 tab Q4H PRN Administration Pain Rated 4-6 Celecoxib 200 mg 09/27/23 17:00 09/28/23 09:14 Celecoxib 200 Mg Capsule PO 200 mg BIDWM [place] Administration Cyclobenzaprine HCl 10 mg 09/27/23 11:49 09/27/23 12:45 Cyclobenzaprine Hcl 10 Mg Tablet PO 10 mg Q8H PRN Administration Spasms Diphenhydramine HCl 25 mg 09/27/23 11:49 Diphenh
[2023-10-01 10:40] LABS: Hepatitis B Core Ab Total Nonreactive (Nonreactive)
== END 2023-09-28 12:20 | disposition home or self-care (01) ==
LOC: ANHSURGERY 07:49 → ANH3MEDSUR 11:51
PROVIDERS: Student in an Organized Health Care Education/Training Program; Visit Provider Orthopaedic Surgery
PROC: (CPT 27447; principal; 2023-09-27 10:30)
DX: M17.12 Unilateral primary osteoarthritis, left knee (principal); G89.18 Other acute postprocedural pain; E66.9 Obesity, unspecified; Z68.38 Body mass index [BMI] 38.0-38.9, adult; R79.89 Other specified abnormal findings of blood chemistry; R03.0 Elevated blood-pressure reading, without diagnosis of hypertension
CPT/HCPCS: 64447; 27447; 36415; 73560; 80048; 80053; 80061; 80307; 82040; 82565; 82947; 83036; 85025; 85027; 85055; 86704; 86706; 86803; 86850; 86900; 86901; 87081; 87340; 93005; 97110; 97116; 97161; 97165; 97530; 97535; A9270; C1713; C1776; J0171; J0690; J1100; J1170; J1885; J2250; J2270; J2405; J2704; J2795; J3010; J3370; J7120

== ENCOUNTER 2023-10-29 00:03 | Day surgery (SDC) | payer OTHER, SELFPAY ==
[2023-10-23 10:53] VITALS: BMI 36.5
--- NOTE | 2023-10-23 10:54 | PC.NURSE ---
Report to the Outpatient Waiting Room, entrance under the green pavilion located off [facility], at time 0915 on date 10/29/23. Planned Procedure Time: 1115. Time changes happen often and if your time is changed the preop area will call you the afternoon before. - You and your visitor will be asked to self-screen and do not enter if you have any COVID symptoms. - A mask is optional within the hospital at this time. Patients may have clear liquids (water, carbonated beverages, clear teas, apple juice) until 3 hours prior to surgery with a maximum of 20 ounces. - No food from midnight until time of surgery Take the following medications with a SIP of water the morning of surgery: PAIN PILL IF NEEDED DO NOT STOP ANY OF YOUR OTHER PRESCRIPTION MEDICATIONS PRIOR TO SURGERY ?EXCEPT THE FOLLOWING Medications to discontinue per physician: N/A Date to take last dose: N/A Please no make-up, nail montenegrin, hairspray, perfume, deodorant, or body powder the day of surgery. No jewelry (including any body piercings) or valuables the day of surgery, leave them at home. Please take a shower or bath the night before, or the morning of, surgery with an antibacterial soap. Wear comfortable, loose fitting clothing. - Jewelry must be removed prior to entering the operating room. Rings and piercings that are not removed may be cut off. - The hospital will not accept responsibility for valuables. - Please leave all valuables, including medications, at home the day of surgery. If you are going home after surgery, a licensed national van truck driver must drive you home. - NO public transportation without another adult if you receive anesthesia. - We recommend that an adult stay with you for 24 hours following discharge. - We also recommend that you do not drive, make important decision, drink alcoholic beverages, or take any drugs that were not prescribed by your health care provider for at least 24 hours after your discharge time. Follow any additional instructions given to you from your surgeon. If you or anyone in your household have experienced Covid symptoms in the past week, please notify your surgeon or the nurse liaison at the phone number below for possible testing. Telephone instructions given to ANANT DE LEON and asked if any additional questions and then verbalized understanding. Patient advised to call surgeon office or pre surgery nurse liaison [phone] if any additional questions.
--- NOTE | 2023-10-24 07:36 | PM.IMHP ---
H&P: HPI History of Present Illness Date/Time: 10/24/23 07:36 Chief Complaint: Patient is 4 weeks status post total knee arthroplasty left. He has reached an impasse in therapy and has difficulty moving his leg beyond 90?. He has been pushing hard with this. 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 Obesity SOLITARIO (obstructive sleep apnea) non compliant with CPAP Surgical History Surgical History History of arthroscopic knee surgery left - Dr Fowler History of back surgery History of breast biopsy History of carpal tunnel release of both wrists History of ear surgery History of hernia repair History of left knee replacement 09/27/23 History of shoulder surgery left- Dr Fowler Family History Family History Other Diabetes mellitus Family history of cardiovascular disease Family history of kidney disease Social History Social History Smoking status: Never smoker Second hand tobacco smoke exposure: No Additional smoking assessment comments: PT DENIES ALL FORMS TOBACCO USE Alcohol intake: current Drinks per week: 12 Alcohol use details: occasional Substance use: never Substance use type: does not use Do You Feel Safe in your Home?: Yes Lack of Transportation: No Lack of Food: Never True Current Housing: I Have Housing Concerned About Future Housing: No Difficulty Paying Gas/Electric Bills: No Difficulty Paying for Meds: No Currently Unemployed: No Education: High School Diploma/GED Difficulty w/ Childcare or Family Care: No Living arrangements: with family Occupation/Education: occupation 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 of straightening can bend to about 90. The knee feels quite stiff beyond this and he has pain with any further manipulation. Neurologically he is grossly intact. Eyes: General: appearance normal, both eyes and all related structures Neck: Neck: supple Resp: Effort & Inspection: normal respiratory effort Cardio: Rate: regular rate Rhythm: regular rhythm Assessment and Plan Assessment and plan (1) Arthrofibrosis of total knee arthroplasty: Code(s): T84.82XA - Fibrosis due to internal orthopedic prosthetic devices, implants and grafts, initial encounter Status: Acute Assessment and Plan: Patient has stiffness in his left knee status post knee replacement surgery. He has been unable to obtain the motion and therapy that is would be helpful. At this point he has reached an impasse would like to consider manipulation of his left knee. Will proceed per his request. Discussed risks benefits limitations and alternatives in detail including fracture. (2) History of knee replacement procedure of left knee: Code(s): Z96.652 - Presence of left artificial knee joint Status: Acute
[2023-10-29] VITALS (7 sets, daily range): BP systolic 126–151; BP diastolic 75–103; PULSE 90–113; RESP 16–21; TEMP 36.2–36.7; O2SAT 97–100
[2023-10-29] MEDS: ACETAMINOPHEN 500 MG TABLET 1000 MG PO (06:38)
--- NOTE | 2023-10-29 06:39 | WPDHPUPDATE1 ---
History and Physical Update Update Date/Time: 10/29/23 06:39 History and Physical has been reviewed, including an updated exam of the patient. There are NO changes in the patient's condition. Risks, benefits, and alternatives have been discussed and questions answered. Patient agrees to proceed with procedure.
[2023-10-29] MEDS: LACTATED RINGERS 1,000 ML 30 ML IV CONT (06:45)
[2023-10-29] MEDS: KETOROLAC 15 MG/ML VIAL (*BKC) IV PUSH (06:51)
--- NOTE | 2023-10-29 07:53 | WPDANESEPPF ---
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 Patient Data Age: 48 Gender: M Height: 1.75 m Weight: 112.7 kg Last Vital Signs Temp 36.2 C L 10/29/23 07:05 Pulse 106 H 10/29/23 07:05 Resp 16 10/29/23 07:05 BP 134/91 H 10/29/23 07:05 Pulse Ox 98 10/29/23 07:05 O2 Del Method Room Air 10/29/23 07:05 Allergies Allergy/AdvReac Type Severity Reaction Status Date / Time diclofenac AdvReac Unknown drowsy, Verified 10/29/23 06:28 nausea Home Medications Medication Instructions Recorded Confirmed Type cyclobenzaprine 10 mg tablet 10 mg PO HS PRN muscle spasm #30 09/28/23 10/23/23 Rx tabs hydrocodone 7.5 mg-acetaminophen 1 tablet PO Q4H PRN pain #40 tabs 10/08/23 10/23/23 Rx 325 mg tablet Patient hx anesthesia problems: none Family hx anesthesia problems: none Results Review: All pre-operative results and documents have been reviewed as part of the pre-operative evaluation. 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 Obesity SOLITARIO (obstructive sleep apnea) non compliant with CPAP Surgical History Surgical History History of arthroscopic knee surgery left - Dr Fowler History of back surgery History of breast biopsy History of carpal tunnel release of both wrists History of ear surgery History of hernia repair History of left knee replacement 09/27/23 History of shoulder surgery left- Dr Fowler Family History Family History Other Diabetes mellitus Family history of cardiovascular disease Family history of kidney disease Social History Social History Smoking status: Never smoker Second hand tobacco smoke exposure: No Additional smoking assessment comments: PT DENIES ALL FORMS TOBACCO USE Alcohol intake: current Drinks per week: 12 Alcohol use details: occasional Substance use: never Substance use type: does not use Do You Feel Safe in your Home?: Yes Lack of Transportation: No Lack of Food: Never True Current Housing: I Have Housing Concerned About Future Housing: No Difficulty Paying Gas/Electric Bills: No Difficulty Paying for Meds: No Currently Unemployed: No Education: High School Diploma/GED Difficulty w/ Childcare or Family Care: No Living arrangements: with family Occupation/Education: occupation 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 Informed Consent: The patient's anesthetic plan and its attendant risks and benefits were discussed with the patient/family/POA. Questions were solicited and answers provided to the satisfaction of the patient/family/POA.
--- NOTE | 2023-10-29 08:24 | W.PM.PROC2 ---
Procedure Note - Detailed Date of Procedure 10/29/23 Pre-op Diagnosis Arthrofibrosis of Left total knee arthroplasty Post-op Diagnosis Same Procedure Performed Manipulation Left Knee Surgeon Poli Fowler MD Anesthesia General Description of Procedure Patient brought to operating room 8. General anesthetic was administered. He was manipulated into full extension. I then was able to med manipulated to about 120? of flexion. The tight bands were felt to tear. He was really quite stiff for summary only 5 weeks out. In no up fractures were appreciated. The patient left the operating room in satisfactory condition. Complications No immediate complications Condition Stable Disposition PACU [facility] Billing Surgery - Charge Forward: Surgery Billing ([id number] Manipulation knee)
[2023-10-29] MEDS: oxyCODONE HCL (*CRX) 5 MG TAB IR PO (09:30)
== END 2023-10-29 09:45 | disposition home or self-care (01) ==
PROVIDERS: Visit Provider Orthopaedic Surgery
PROC: (CPT 27570; principal; 2023-10-29 08:15)
DX: T84.82XA Fibrosis due to internal orthopedic prosthetic devices, implants and grafts, initial encounter (principal); Y83.8 Other surgical procedures as the cause of abnormal reaction of the patient, or of later complication, without mention of misadventure at the time of the procedure; G47.33 Obstructive sleep apnea (adult) (pediatric); G91.9 Hydrocephalus, unspecified; E66.9 Obesity, unspecified; Z68.36 Body mass index [BMI] 36.0-36.9, adult; Z79.891 Long term (current) use of opiate analgesic; Z98.890 Other specified postprocedural states; Z96.652 Presence of left artificial knee joint; Z82.49 Family history of ischemic heart disease and other diseases of the circulatory system
CPT/HCPCS: 27570; A9270; J0330; J1885; J2704; J3010; J7120

== ENCOUNTER 2024-06-27 10:06 | Outpatient (CLI) | payer OTHER, MEDICAID, SELFPAY ==
[2024-06-27 12:04] LABS: Basophils Percent Auto 0.4 % (0.2-1.2); Eosinophils Absolute Auto 0.2 K/mm3 (0-0.3); Eosinophils Percent Auto 1.9 % (0-4.4); Hematocrit 46.3 % (42.0-52.0); Hemoglobin 15.6 g/dL (14.0-18.0); Immature Granulocyte Absolute 0.03 K/mm3 (0.00-0.031); Immature Granulocyte Percent A 0.4 % (0-0.5); Lymphocytes Absolute Auto 2.61 K/mm3 (0.9-3.2); Lymphocytes Percent Auto 32.8 % (18.3-44.2); Mean Corpuscular HGB Conc 33.7 g/dl (32-36); Mean Corpuscular Hemoglobin 29.7 pg (26-34); Mean Corpuscular Volume 88.2 fl (80-100); Mean Platelet Volume 9.1 fl (7.4-10.4); Monocytes Absolute Auto 0.5 K/mm3 (0.1-0.6); Monocytes Percent Auto 6.2 % (2.6-8.5); Neutrophils Absolute Auto 4.7 K/mm3 (1.3-6.7); Neutrophils Percent Auto 58.3 % (45.5-73.1); Platelet Count Result 155 k/mm3 (150-375); Red Blood Count 5.25 M/mm3 (4.6-6.20); Red Cell Distribution Width 13.2 % (11.5-14.5)
[2024-06-27 12:16] LABS: Albumin Level 4.6 g/dL (3.5-5.1); Estimated Glomerular Filt Rate 58; Glucose 87 mg/dL (65-110); Urine Cotinine NEGATIVE
[2024-06-27 12:20] LABS: Hemoglobin A1C 5.4 % (<5.7)
[2024-06-27 13:14] LABS: MRSA (PCR) NOT DETECTED (NOT DETECTE)
== END 2024-06-27 10:07 | disposition home or self-care (01) ==
LOC: ANHSURGERY 10:10
PROVIDERS: Visit Provider Orthopaedic Surgery
DX: Z01.812 Encounter for preprocedural laboratory examination (principal); M17.12 Unilateral primary osteoarthritis, left knee
CPT/HCPCS: 80307; 82040; 82565; 82947; 83036; 85025; 86850; 86900; 86901; 87641